=== PATIENT | female | born 1970 | race Caucasian/White ===

== ENCOUNTER 2016-09-12 08:54 | Emergency (ER) | payer OTHER | END 2016-09-12 10:53 | disposition home or self-care (01) | LOC: FER 08:54 | DX: S01.111A Laceration without foreign body of right eyelid and periocular area, initial encounter (principal); S50.311A Abrasion of right elbow, initial encounter; M25.561 Pain in right knee; W10.9XXA Fall (on) (from) unspecified stairs and steps, initial encounter ==

== ENCOUNTER 2016-10-04 14:50 | Emergency (ER) | payer OTHER | END 2016-10-04 15:38 | disposition home or self-care (01) | LOC: FER 14:50 | DX: Z48.02 Encounter for removal of sutures (principal) | CPT/HCPCS: 99281 ==